=== PATIENT | female | born 1940 | race Caucasian/White ===

== ENCOUNTER → 2018-05-11 09:28 | Outpatient (CLI) | payer MEDICARE, OTHER, SELFPAY ==
--- NOTE | 2018-05-11 | DI.US.S_ITS ---
PROCEDURE: US ABDOMEN COMPLETE INDICATIONS: RIGHT UPPPER QUADRANT PAIN TECHNIQUE: Real-time scanning was performed of the abdominal and retroperitoneal organs, with image documentation. COMPARISON: None. FINDINGS: Liver: Liver is normal in size and homogeneous in echotexture. Gallbladder: No gallstones identified. Normal gallbladder wall. No pericholecystic fluid. Negative sonographic Calvo sign. Biliary ducts: Intrahepatic bile ducts are non-dilated. Extrahepatic bile duct caliber measures 6.4 mm. Normal is 6-7 mm or less in diameter, or 10 mm or less post-cholecystectomy. Pancreas: Visualized portions of the pancreas are sonographically normal. Spleen: Spleen is normal in size and homogeneous in echotexture. Kidneys: Kidneys are normal in size and echotexture. Right kidney measures 8.8 cm long; left kidney measures 9.4 cm long. No hydronephrosis or nephrolithiasis. No solid masses. Simple left renal cyst measuring 19 mm. Multiple small right renal peripelvic cyst. Aorta: Visualized aorta is normal in caliber at less than 3 cm. Iliacs: Proximal common iliac arteries are normal in caliber at less than 2.5 cm. IVC: Intrahepatic inferior vena cava is patent. Miscellaneous: No free abdominal fluid. IMPRESSION: 1. No source for abdominal pain identified. Dictated by: Raj GOINS Interpreted: Mirian Harrington MD on 05/11/2018 at 12:53 Approved by: Mirian Harrington M.D. on 05/11/2018 at 15:09
== END ==
PROVIDERS: Visit Provider Internal Medicine
DX: R10.11 Right upper quadrant pain (principal)
CPT/HCPCS: 76700

== ENCOUNTER 2018-07-20 08:58 | Day surgery (SDC) | payer MEDICARE, OTHER, SELFPAY ==
[2018-07-20] VITALS (7 sets, daily range): BP systolic 112–150; BP diastolic 55–81; PULSE 57–72; RESP 12–20; TEMP 36–36.6; O2SAT 95–98; BMI 21.6
[2018-07-20] MEDS: SODIUM CHLORIDE 0.9% 1,000 ML 200 ML IV (10:02)
--- NOTE | 2018-07-20 11:08 | PM.HP.1 ---
History of Present Illness Chief complaint: [id number] Patient History Social History household members: spouse Family & Social History Social History: household members spouse Meds Home Medications Medication Instructions Recorded Confirmed Type conjugated estrogens [Premarin] 0.625 mg PO DAILY 07/20/18 07/20/18 History levetiracetam [Keppra] 500 mg PO BID 07/20/18 07/20/18 History metoprolol succinate 25 mg PO BID 07/20/18 07/20/18 History simvastatin 40 mg PO QPM 07/20/18 07/20/18 History tamsulosin [Flomax] 0.4 mg PO DAILY 07/20/18 07/20/18 History zolpidem [Ambien] 5 mg PO BEDTIME PRN 07/20/18 07/20/18 History Allergies Allergy/AdvReac Type Severity Reaction Status Date / Time No Known Drug Allergies Allergy Verified 07/20/18 09:48 Exam Vital Signs (past 8 hours): - 07/20/18 09:49 Temperature 97.6 F Pulse Rate 57 L Respiratory Rate 15 Blood Pressure 150/81 H Pulse Oximetry 98 Oxygen Delivery Method Room Air Narrative Exam Narrative: Awake alert and oriented x3, pupils equal round reactive to light, heart regular rate rhythm, lungs clear to auscultation bilaterally, abdomen soft nontender nondistended, lower extremities without edema Assessment & Plan Assessment & Plan narrative: Colon cancer screening for colonoscopy
[2018-07-20] MEDS: MIDAZOLAM 5 MG/5 ML VIAL IV (11:22)
[2018-07-20] MEDS: fentaNYL 250 MCG/5 ML INJ IV (11:23)
--- NOTE | 2018-07-20 11:34 | PM.OP.ENDO ---
Operative Date/Time/Diagnoses Date of procedure: 07/20/18 Procedure & Clinicians Study performed: Colonoscopy Moderate conscious sedation was administered by the endoscopy nurse and supervised by the endoscopist. The following parameters were monitored: Oxygen saturation, heart rate, blood pressure, and response to care. Sedation: 4 mg of midazolam, 100 micro g fentanyl Indications: Colon cancer screening, personal history of colon polyps, last colonoscopy about 5 years ago Procedure Notes Procedure in detail: Prior to the procedure, history and physical was performed, and patient medications and allergies were reviewed. Preprocedure nursing history and assessment was reviewed. Patient identification and proposed procedure were verified by the physician and nurse in the procedure room. The physical status of the patient was reassessed after the procedure. After informed consent was obtained including risks, benefits, and alternatives, the scope was passed under direct vision. Throughout the procedure, the patient's blood pressure, pulse, and oxygen saturations were monitored continuously. The colonoscope was introduced through the anus and advanced to the cecum as identified by the appendiceal orifice and ileocecal valve. The patient tolerated the procedure well. Bowel prep was deemed adequate to detect polyps greater than 5 mm. Perianal exam and ADAMA were unremarkable. Retroflexion in the rectum was unrevealing Many medium mouth diverticula noted in the sigmoid and descending colon The colon was otherwise unremarkable Impression: Left-sided diverticulosis Colon otherwise normal-appearing No specimens taken Sedation minutes: 16 Complications: other (No EBL. No complications) Plan for aftercare: Recommendation: No repeat colonoscopy indicated for screening purposes given age greater than 75 Resume home medications High fiber diet Discharged home with escort
--- NOTE | 2018-07-20 12:25 | SUR.PHASEII ---
Previous IV site clear at time of DC, dressing c/d/i.
== END 2018-07-20 12:25 | disposition home or self-care (01) ==
PROVIDERS: PCP Internal Medicine; Visit Provider Internal Medicine
PROC: 0DJD8ZZ Inspection of Lower Intestinal Tract, Via Natural or Artificial Opening Endoscopic (ICD-10-PCS; CPT 45378; principal; 2018-07-20 10:30)
DX: Z86.010 Personal history of colon polyps (principal); K57.30 Diverticulosis of large intestine without perforation or abscess without bleeding
CPT/HCPCS: G0105; J2250; J3010

== ENCOUNTER → 2018-10-12 14:36 | Outpatient (CLI) | payer MEDICARE, OTHER, SELFPAY | PROVIDERS: PCP Internal Medicine; Visit Provider Internal Medicine | DX: M81.0 Age-related osteoporosis without current pathological fracture (principal); Z78.0 Asymptomatic menopausal state | CPT/HCPCS: 77080 ==

== ENCOUNTER → 2019-03-02 15:34 | Outpatient (ROUT) | payer MEDICARE, OTHER, SELFPAY ==
[2019-03-02 16:36] LABS: Alanine Aminotransferase 17 IU/L (<35); Aspartate Aminotransferase 28 IU/L (14-36); BUN Creatinine Ratio 23.6 (6-22); Blood Urea Nitrogen 26 mg/dL (7-17); Calcium 9.3 mg/dL (8.4-10.2); Carbon Dioxide 27 mmol/L (22-32); Chloride 105 mmol/L (98-107); Cholesterol 145 mg/dL (140-199); Estimated Glomerular Filt Rate 47.9 mL/min (>60); Glucose 88 mg/dL (80-110); HDL Cholesterol 54 mg/dL (40-60); HEMOLYSIS < 15 (0-50); LDL Cholesterol Calculated 73 mg/dL (<100); Potassium 4.3 mmol/L (3.4-5.1); Sodium 139 mmol/L (137-145); Triglycerides 91 mg/dL (35-150)
== END ==
PROVIDERS: PCP Internal Medicine; Visit Provider Internal Medicine
DX: E78.5 Hyperlipidemia, unspecified (principal); I10 Essential (primary) hypertension
CPT/HCPCS: 80048; 80061; 84450; 84460

== ENCOUNTER → 2019-10-04 12:09 | Outpatient (CLI) | payer MEDICARE, OTHER, SELFPAY ==
[2019-10-04 13:47] LABS: Alanine Aminotransferase 21 IU/L (<35); Albumin 4.4 g/dL (3.5-5.0); Albumin Globulin Ratio 1.6 (1.0-2.8); Alkaline Phosphatase 47 U/L (38-126); Aspartate Aminotransferase 32 IU/L (14-36); BUN Creatinine Ratio 20.5 (6-22); Bilirubin Total 0.8 mg/dL (0.2-1.3); Blood Urea Nitrogen 23 mg/dL (7-17); Calcium 10.1 mg/dL (8.4-10.2); Carbon Dioxide 27 mmol/L (22-32); Chloride 105 mmol/L (98-107); Cholesterol 150 mg/dL (140-199); Estimated Glomerular Filt Rate 46.8 mL/min (>60); Globulin 2.8 g/dL (1.7-4.1); Glucose 103 mg/dL (80-110); HDL Cholesterol 57 mg/dL (40-60); HEMOLYSIS < 15 (0-50); LDL Cholesterol Calculated 67 mg/dL (<100); Potassium 4.7 mmol/L (3.4-5.1); Sodium 140 mmol/L (137-145); Total Protein 7.2 g/dL (6.3-8.2); Triglycerides 131 mg/dL (35-150)
== END ==
PROVIDERS: PCP Internal Medicine; Referring Provider Internal Medicine; Visit Provider Internal Medicine
DX: I10 Essential (primary) hypertension (principal); E78.5 Hyperlipidemia, unspecified
CPT/HCPCS: 36415; 80053; 80061

== ENCOUNTER → 2021-02-05 10:59 | Outpatient (CLI) | payer MEDICARE, OTHER, SELFPAY ==
--- NOTE | 2021-02-05 | DI.RAD.S_ITS ---
PROCEDURE: XR DEXA AXIAL SKELETON INDICATIONS: Age-related osteoporosis without current pathologi COMPARISON: [facility], CR, XR DEXA AXIAL SKELETON, 10/12/2018, 15:03. FINDINGS: This blank DEXA report has been sent in error by the PACS system. The correct and complete report will be forthcoming in 1-2 days. Thank you for your patience and understanding. Dictated by: Graciela Kelly MD, PhD on 02/05/2021 at 16:52 Approved by: Graciela Kelly MD, PhD on 02/05/2021 at 16:52
== END ==
PROVIDERS: PCP Internal Medicine; Referring Provider Internal Medicine; Visit Provider Internal Medicine
DX: M85.852 Other specified disorders of bone density and structure, left thigh (principal); Z78.0 Asymptomatic menopausal state
CPT/HCPCS: 77080

== ENCOUNTER → 2021-03-17 07:43 | Outpatient (CLI) | payer MEDICARE, OTHER, SELFPAY ==
--- NOTE | 2021-03-17 | DI.MG.S_ITS ---
BILATERAL DIGITAL SCREENING MAMMOGRAM 3D/2D WITH CAD: 03/17/2021 CLINICAL: Routine screening. Family history of breast cancer. Comparison mammogram 03/01/2019. The tissue of both breasts is heterogeneously dense. This may lower the sensitivity of mammography. Current study was also evaluated with a Computer Aided Detection (CAD) system. There are benign post operative findings in both breasts. No significant masses, calcifications, or other findings are seen in either breast. IMPRESSION: BENIGN There is no mammographic evidence of malignancy. A 1 year screening mammogram is recommended. This exam was interpreted at Station ID: [id number]. NOTE: For mammograms, a report in lay terms will be sent to the patient. Approximately 15% of breast malignancies will not be visualized mammographically. In the management of a palpable breast mass, a negative mammogram must not discourage biopsy of a clinically suspicious lesion. Electronically Signed By: Jaleel Valladares M.D. [facility]/:03/18/2021 08:22:47 letter sent: Normal Exam ACR BI-RADS Category 2: Benign Finding(s) 3342F
== END ==
PROVIDERS: PCP Internal Medicine; Referring Provider Internal Medicine; Visit Provider Internal Medicine
DX: Z12.31 Encounter for screening mammogram for malignant neoplasm of breast (principal); Z80.3 Family history of malignant neoplasm of breast
CPT/HCPCS: 77063; 77067

== ENCOUNTER → 2021-03-25 07:05 | Outpatient (CLI) | payer MEDICARE, OTHER, SELFPAY ==
--- NOTE | 2021-03-25 | DI.US.S_ITS ---
PROCEDURE: US RENAL COMPLETE INDICATIONS: STAGE 3A CHRONIC KIDNEY DISEASE TECHNIQUE: Real-time scanning was performed of the kidneys and bladder, with image documentation. COMPARISON: None. FINDINGS: Kidneys: Right kidney measures 8.6 cm long; left kidney measures 9.1 cm long. Right renal cortical thickness is 0.9 cm; left renal cortical thickness is 0.8 cm. Renal cortical echotexture is normal. No hydronephrosis or nephrolithiasis. No suspicious solid mass lesions. Several simple appearing renal cysts are seen, which measure up to 1.5 cm on the right and up to 1.6 cm on the left. Bladder: Pre-void bladder volume is 160 mL. Post-void residual is 40 mL. Pre-void images demonstrate no intraluminal masses or stones. On pre-void images, only the left ureteral jet can be seen with color Doppler interrogation. (Of note, ureteral jets may not be detectable in up to 25% of cases due to insufficient differences in specific gravity between ureteral and bladder urine). Miscellaneous: No free pelvic fluid. IMPRESSION: Atrophic appearing kidneys. No hydronephrosis is seen. Bilateral simple appearing renal cysts are seen. Mild postvoid residual, 40 cc. Dictated by: Jamie Sahu M.D. on 03/25/2021 at 9:56 Approved by: Jamie Sahu M.D. on 03/25/2021 at 9:58
[2021-03-25 09:17] LABS: Estimated Glomerular Filt Rate 44.8 mL/min (>60)
== END ==
PROVIDERS: PCP Internal Medicine; Referring Provider Internal Medicine Nephrology; Visit Provider Internal Medicine Nephrology
DX: N18.31 Chronic kidney disease, stage 3a (principal); N32.0 Bladder-neck obstruction; N05.9 Unspecified nephritic syndrome with unspecified morphologic changes
CPT/HCPCS: 36415; 76770; 82565

== ENCOUNTER → 2023-04-01 09:26 | Outpatient (CLI) | payer MEDICARE, SELFPAY ==
--- NOTE | 2023-04-01 | DI.RAD.S_ITS ---
Bone Density Report Name: MOIZ SERRA Age: 82 Sex: Female Ethnicity: White Date of : 1940 Indication: osteopenia; Referring Provider: MARIIA LAM Study: Bone densitometry was performed. Exam Date: April 01, 2023 Accession number: [id number] Bone Density: Region BMD T-score Z-score Classification AP Spine(L1-L4) 0.979 -0.6 2.2 Normal Femoral Neck (Left) 0.554 -2.7 -0.2 Osteoporosis Total Hip (Left) 0.715 -1.9 0.4 Osteopenia Femoral Neck (Right) 0.429 -3.8 -1.3 Osteoporosis Total Hip (Right) 0.652 -2.4 -0.1 Osteopenia Total Hip Mean 0.683 -2.2 0.2 Osteopenia World Health Organization criteria for BMD impression classify patients as: Normal (T-score at or above -1.0), Osteopenia (T-score between -1.0 and -2.5), or Osteoporosis (T-score at or below -2.5). 10-year Fracture Risk: FRAX not reported because: Some T-score for Spine Total or Hip Total or Femoral Neck at or below -2.5 Previous Exams: -- Region Exam Age BMD T-score BMD Change BMD Change Date g/cm2 vs Baseline vs Previous -- AP Spine (L1-L4) 04/01/2023 82 0.979 -0.6 -0.018 (-1.8%)# -0.018 (-1.8%)# 02/05/2021 80 0.997 -0.5 Total Hip(Left) 04/01/2023 82 0.715 -1.9 0.003 (0.4%)# 0.003 (0.4%)# 02/05/2021 80 0.712 -1.9 Total Hip(Right) 04/01/2023 82 0.652 -2.4 -0.052 (-7.4%)# -0.052 (-7.4%)# 02/05/2021 80 0.704 -2.0 -- *Denotes significance at 95% confidence level, LSC for AP Spine = 0.022 g/cm2, LSC for Total Hip = 0.027 g/cm2 # Denotes dissimilar scan types or analysis methods Impression: The patient has osteoporosis, based on the Right Femoral Neck T-score. No significant bone loss was observed. Discussion: INCREASED RISK OF FRACTURE. BONE DENSITY IS UNDESIRABLY LOW AT ONE OR MORE SKELETAL SITES, CONSISTENT WITH POSTMENOPAUSAL OSTEOPOROSIS. This patient's lowest T-score meets the World Health Organization's (WHO) criteria for osteoporosis at one or more sites (T-score -2.5 or below). In untreated patients, the risk of osteoporotic fracture increases approximately two-fold for each 1.0 SD decrease in T-score. Low bone density is not the only risk factor for fracture; also consider factors such as patient's age, frailty or poor health, risk of falling, risk of injury, previous osteoporotic fracture, family history of osteoporosis, cigarette smoking, low body weight, etc. Not everyone with low bone mineral density has osteoporosis; osteomalacia and other metabolic bone disorders should also be considered. Patients who have osteoporosis should be evaluated for specific diseases and conditions (secondary causes) that may cause or contribute to bone loss. The [place] [employer] (AACE) and National Osteoporosis Foundation (NOF) recommend pharmacologic intervention for all postmenopausal women whose T-score is in this range. The patient should follow a healthful lifestyle (good nutrition with adequate calcium and vitamin D, and appropriate weight-bearing exercise). Follow-Up: Consider a repeat BMD and Vertebral Fracture Assessment (VFA) exam in 2 years or sooner if medically necessary, to reassess this patient's status. Reported by: KYREE VALDEZ M.D. on 04/01/2023 10:26:00 AM.
== END ==
PROVIDERS: PCP Internal Medicine; Referring Provider Internal Medicine; Visit Provider Internal Medicine
DX: M81.0 Age-related osteoporosis without current pathological fracture (principal)
CPT/HCPCS: 77080

== ENCOUNTER → 2024-07-31 11:57 | Outpatient (CLI) | payer MEDICARE, SELFPAY ==
--- NOTE | 2024-07-31 11:59 | DI.RAD.S_ITS ---
PROCEDURE: XR FOOT LT MIN 3V INDICATIONS: LT FOOT PAIN TECHNIQUE: 3 views of the foot were acquired. COMPARISON: None. FINDINGS: Bones: Hallux valgus and Hammertoe anomalies present 1st through 5th digits. 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 Severe degeneration noted in the 2nd and 3rd interphalangeal and the 4th and 5th DIP joints. Soft tissues: Mild diffuse soft swelling noted. IMPRESSION: Chronic findings as described Dictated by: Ernst Overton M.D. on 08/01/2024 at 7:53 Approved by: Ernst Overton M.D. on 08/01/2024 at 7:56
== END ==
PROVIDERS: PCP Internal Medicine; Referring Provider Internal Medicine; Visit Provider Internal Medicine
DX: M20.12 Hallux valgus (acquired), left foot (principal); M20.42 Other hammer toe(s) (acquired), left foot; M19.072 Primary osteoarthritis, left ankle and foot; M79.672 Pain in left foot; M79.89 Other specified soft tissue disorders
CPT/HCPCS: 73630